=== PATIENT | male | born 2000 | race Caucasian/White ===

== ENCOUNTER 2023-04-12 13:01 | Emergency (ER) | payer OTHER ==
[~2023-04-12] VITALS: Ht 170.2 cm; Wt 59.0 kg
[2023-04-12] MEDS ORDERED: KEPPRA500 MG PO (13:10)
[2023-04-12 14:46] VITALS: BP 114/73
== END 2023-04-12 14:48 | disposition home or self-care (01) ==
LOC: ED 13:01
DX: S02.2XXA Fracture of nasal bones, initial encounter for closed fracture (principal); G40.909 Epilepsy, unspecified, not intractable, without status epilepticus; W18.30XA Fall on same level, unspecified, initial encounter; Z79.899 Other long term (current) drug therapy
CPT/HCPCS: 70450; 70486; 99284-25; A9270